=== PATIENT | male | born 1975 | race Caucasian/White ===

== ENCOUNTER 2022-04-30 13:38 | Emergency (ER) | payer OTHER ==
[~2022-04-30] VITALS: Ht 177.8 cm; Wt 90.7 kg
--- NOTE | 2022-04-30 14:08 | NUR ---
Patient discharged to home in stable condition. Written and verbal after care instructions given. Patient verbalizes understanding of instructions. Stressed follow up or return to ER for worsening s/s.
== END 2022-04-30 14:08 | disposition home or self-care (01) ==
LOC: ER 13:43
DX: U07.1 COVID-19 (principal)
CPT/HCPCS: A4663